=== PATIENT | female | born 1975 | race Caucasian/White ===

== ENCOUNTER 2023-08-26 03:53 | Emergency (ER) | payer OTHER ==
[~2023-08-26] VITALS: Ht 149.8 cm; Wt 81.6 kg
[2023-08-26] MEDS ORDERED: MELOXICAM15 MG PO (04:03)
[2023-08-26] MEDS ORDERED: AMOX-CLAV 875-1 EACH PO (04:03)
== END 2023-08-26 04:25 | disposition home or self-care (01) ==
LOC: ED 03:53
DX: K02.9 Dental caries, unspecified (principal); K04.7 Periapical abscess without sinus; F17.290 Nicotine dependence, other tobacco product, uncomplicated